=== PATIENT | female | born 2005 | race Caucasian/White ===

== ENCOUNTER 2024-04-30 23:22 | Emergency (ER) | payer BC ==
[2024-04-30] MEDS: Ketorolac 30 MG/ML SDV IM ONE (23:51)
[2024-04-30] MEDS: hydrOXYzine HCl 50 MG/ML SDV IM ONE (23:51)
== END 2024-05-01 00:03 | disposition home or self-care (01) ==
LOC: FB.ED 23:22
DX: G43.909 Migraine, unspecified, not intractable, without status migrainosus (principal); Z79.899 Other long term (current) drug therapy
CPT/HCPCS: 96372; 99283; J1885; J3410